=== PATIENT | male | born 1985 | race Hispanic/Latino ===

== ENCOUNTER 2024-08-25 11:47 | Emergency (ER) | payer OTHER ==
[~2024-08-25] VITALS: Ht 162.6 cm; Wt 71.6 kg
[2024-08-25 11:52] VITALS: BP 150/85
[2024-08-25 12:00] VITALS: BP 134/91
[2024-08-25 12:25] LABS: BASO% 0.2 % (0-3); EOS% 1.1 % (0-8); HEMATOCRIT 45.4 % (39.0-50.0); HEMOGLOBIN 15.5 g/dl (14.0-18.0); IMMATURE GRANULOCYTES 0.2 % (0.0-5.0); LYMPH% 40.2 % (15-41); MEAN CELL VOLUME 82.8 fL CALC (80.0-100.0); MEAN CORPUSCULAR HGB 28.3 pG CALC (26.0-32.0); MEAN CORPUSCULAR HGB CONC 34.1 g/dL CAL (32.0-36.0); MONO% 4.3 % (2-13); NEUT# 4.56 thou/uL (1.82-7.42); RED BLOOD COUNT 5.48 mill/uL (4.70-6.10); RED CELL DISTRI WIDTH 12.8 % (11.5-15.5)
[2024-08-25 12:34] LABS: ALKALINE PHOSPHATASE 125 u/l (38-126); ANION GAP 15 (6-22 (CALC)); BILIRUBIN, TOTAL 0.7 mg/dL (0.2-1.3); BUN 14 mg/dL (9-20); BUN/CREATININE RATIO 19 (12-20 (CALC)); CARBON DIOXIDE 26 mmol/l (22-30); CHLORIDE 105 mmol/l (95-108); CREATININE 0.7 mg/dL (0.7-1.3); ESTIMATED GFR 121 ML/MIN (>=90 (CALC)); LIPASE 60 u/l (23-300); POTASSIUM 3.4 mmol/l (3.5-5.1); SGOT/AST 55 u/l (17-59); SODIUM 142 mmol/l (137-146); TOTAL PROTEIN 8.8 g/dL (6.3-8.2)
[2024-08-25 12:45] VITALS: BP 139/95
[2024-08-25] MEDS ORDERED: IBUPROFEN 200 MG/TAB PO ONE (12:45)
[2024-08-25] MEDS ORDERED: ACETAMINOPHEN 325 MG/TAB PO ONE (12:45)
[2024-08-25 13:00] VITALS: BP 139/86
[2024-08-25 13:15] VITALS: BP 141/92
[2024-08-25 13:22] VITALS: BP 141/92
== END 2024-08-25 13:33 | disposition home or self-care (01) | DRG 313 ==
LOC: ED 11:47
PROVIDERS: Family Medicine
DX: R07.89 Other chest pain (principal); M25.571 Pain in right ankle and joints of right foot; V49.40XA Driver injured in collision with unspecified motor vehicles in traffic accident, initial encounter